=== PATIENT | male | born 1980 | race Caucasian/White ===

== ENCOUNTER 2024-02-18 12:50 | Outpatient (REF) | payer BC, SELFPAY ==
[2024-02-18 14:37] LABS: Abs Immature Grans 0.06 10^3/uL (0.0-0.06); Absolute Basophil Count 0.05 10^3/uL (0.0-0.2); Absolute Eosinophil Count 0.17 10^3/uL (0.0-0.7); Absolute Lymphocyte Count 2.34 10^3/uL (1.2-3.4); Absolute Neutrophil Count 3.23 10^3/uL (1.2-6.7); Basophils % 0.8 %; Eosinophils % 2.6 %; HCT 45.2 % (40.0-50.0); HGB 15.2 g/dL (13.5-17.5); Immature Grans % 0.9 %; Lymphocytes % 36.3 %; MCH 29.3 pg (27.0-33.0); MCHC 33.6 % (32.0-36.0); MCV 87 fL (80-95); MPV 10.8 fL (8.0-11.0); Monocytes % 9.3 %; Neutrophils % 50.1 %; Platelet Count 280 10^3/uL (130-400); RBC 5.18 10^6/uL (4.36-5.78); RDW 13.6 % (11.8-14.1); RDW-SD 43.8 fL; WBC 6.45 10^3/uL (4.4-10.8)
[2024-02-18 15:56] LABS: ALT 43 U/L (16-63); AST 22 U/L (15-37); Albumin 4.1 g/dL (3.4-5.0); Alkaline Phosphatase 78 U/L (46-116); Anion Gap 7.9 mmol/L (3-11); BUN 25 mg/dL (7-18); Bilirubin, Total 0.65 mg/dL (0.2-1.0); CO2 29.1 mmol/L (21.0-32.0); CREATININE 0.8 mg/dL (0.70-1.30); Calcium 9.4 mg/dL (8.5-10.1); Calculated LDL 172 mg/dL (<100); Chloride 105 mmol/L (98-107); Cholesterol 244 mg/dL (<200); Estimated GFR 113.32 (mL/min/1.73m2); Glucose 95 mg/dL (74-106); HDL Cholesterol 41 mg/dL (40-60); Potassium 4.7 mmol/L (3.5-5.1); Sodium 142 mmol/L (136-145); Total Protein 7.2 g/dL (6.4-8.2); Triglyceride 155 mg/dL (<150)
[2024-02-18 16:43] LABS: Amylase 25 U/L (25-115); Lipase 19 U/L (16-77)
== END 2024-02-18 12:51 | disposition home or self-care (01) ==
LOC: NCHCN 12:50
PROVIDERS: PCP Family Medicine; Visit Provider Family Medicine
DX: R10.9 Unspecified abdominal pain (principal); E78.89 Other lipoprotein metabolism disorders
CPT/HCPCS: 80053; 80061; 83690; 82150; 85025